=== PATIENT | female | born 1965 | race Caucasian/White ===

== ENCOUNTER 2025-02-12 09:52 | Emergency (ER) | payer OTHER, SELFPAY ==
[2025-02-12] VITALS (8 sets, daily range): BP systolic 146–157; BP diastolic 68–110; PULSE 95; TEMP 36.8; O2SAT 95–99; BMI 25.4
[2025-02-12] MEDS: METHYLPREDNISOLONE SOD SUCC PF 125 MG/2 ML VIAL IVP (10:22)
[2025-02-12] MEDS: DIPHENHYDRAMINE HCL 50 MG/ML VIAL 25 MG IVP (10:22)
--- NOTE | 2025-02-12 10:55 | ED.ALLEREA1 ---
HPI - Allergic Reaction General Chief complaint: Allergic Reaction Stated complaint: allergic reaction Time Seen by Provider: 02/12/25 10:00 Source: patient Mode of arrival: ambulance Limitations: no limitations History of Present Illness HPI narrative: The patient is a 59-year-old female brought to us by the EMS after she had a possible anaphylactic or allergic reaction, as per the EMS she was complaining of difficulty breathing and that her throat is closing up a few minutes before arrival. By the time the EMS arrived she was tachycardic and she was complaining that she cannot breathe and her throat is closing up although her pulse ox was normal the patient was provided with epinephrine. According to the EMS also she had a rash on her upper body that disappeared by the time she came to the ER According to the patient she just had a scratch tests for allergy done yesterday and according to her she was supposed to get it read tomorrow, the patient started this morning while she is driving to work feeling that her throat is closing up and she is itching a lot from her back, she is complaining right now is a lot of itching in her back in addition to mildly feeling that her throat is still swollen The patient has no difficulty speaking at the moment and she did not had any change in voice No apparent rash at the moment at the upper and lower extremities with the patient have her skin allergen teststill attached to her back Related Data Previous Rx's ?Medication ?Instructions ?Recorded diphenhydramine HCl 25 mg capsule 25 mg PO Q8H PRN allergic reaction 02/12/25 (Benadryl) #10 caps prednisone 20 mg tablet 40 mg (2 x 20 mg) PO DAILY 3 days 02/12/25 #6 tabs Allergies Allergy/AdvReac Type Severity Reaction Status Date / Time Penicillins Allergy Intermediate Hives Verified 02/12/25 09:56 Review of Systems ROS Status of ROS 10 or more systems reviewed and unremarkable except as noted in history and below PFSH PFSH Social History Little interest or pleasure in doing things: not at all Feeling down, depressed, or hopeless: not at all Exam Narrative Exam Narrative: Nurses notes and vital signs reviewed and patient is not hypoxic. General: Well-appearing and in no apparent distress. Skin: The patient had the skin allergy test test to her back when removing it there was 2 spots of redness mostly showing a circular contact dermatitis, there is no name attached to the discs Head: Normocephalic, atraumatic. Neck: Supple, non-tender. Eye: Pupils are equal, round and EOMI. No scleral icterus. Ears, Nose, Mouth, and Throat: TM are clear, no nasal mucosal hypertrophy. Oral mucosa is moist, no posterior oropharynx erythema, uvula is mid-line and airway is patent Cardiovascular: Regular Rate and Rhythm without murmur, gallop or rub. Respiratory: No accessory muscle use or respiratory distress. Lungs are clear to auscultation, no wheezing, rales or rhonchi Chest Wall: no tenderness Back: No midline thoracic or lumbar vertebral tenderness. No CVA tenderness Musculoskeletal: normal ROM, no calf or popliteal tenderness, no lower extremity edema/swelling GI: Abdomen is soft, non-distended. Normal bowel sounds. No masses appreciated. No tenderness to palpation. No rebound, guarding, or rigidity noted. Neurological: A&O x4. No cranial nerve dysfunction observed. No truncal ataxia. Moves all extremities. Sensation intact. Psychiatric: Cooperative and interactive. Normal mood and affect. Constitutional Vital Signs, click to edit/add: Last Vital Signs Temp 98.2 F 02/12/25 09:56 Pulse 95 H 02/12/25 09:56 Resp 20 02/12/25 09:56 BP 154/94 H 02/12/25 09:56 Pulse Ox 98 02/12/25 09:56 O2 Del Method Room Air 02/12/25 09:56 Course Vital Signs Vital signs: Vital Signs Temperature 98.2 F 02/12/25 09:56 Pulse Rate 95 H 02/12/25 09:56 Respiratory Rate 20 02/12/25 09:56 Blood Pressure 154/94 H 02/12/25 09:56 Pulse Oximetry 98 02/12/25 09:56 Oxygen Delivery Method Room Air 02/12/25 09:56 Temperature 98.2 F 02/12/25 09:56 Pulse Rate 95 H 02/12/25 09:56 Respiratory Rate 20 02/12/25 09:56 Blood Pressure 154/94 H 02/12/25 09:56 Pulse Oximetry 98 02/12/25 09:56 Oxygen Delivery Method Room Air 02/12/25 09:56 MDM - Allergic Reaction MDM Narrative Medical decision making narrative: The patient ready received epinephrine IM before arrival for possible allergic reaction by the time she arrived to us she is feeling better but she has no rash as well except for the contact dermatitis spots on her back but she was complaining of severe itching Patient provided with Benadryl and Solu-Medrol after removing the allergy test The patient does have 2 spots of contact dermatitis and she was provided with a 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 The patient agrees with the following Diagnosis and Treatment plan and the patient will be discharged home. Discharge Plan Discharge Chief Complaint: Allergic Reaction Clinical Impression: Allergic reaction Patient Disposition: Home, Self-Care Time of Disposition Decision: 10:56 Condition: Good Mode of Transportation: Private Vehicle Prescriptions / Home Meds: New prednisone 20 mg tablet 40 mg PO DAILY 3 Days Qty: 6 0RF diphenhydramine HCl [Benadryl] 25 mg capsule 25 mg PO Q8H PRN (Reason: allergic reaction) Qty: 10 0RF Print Language: Mohawk Instructions: General Allergic Reaction (ED), Allergy Testing (ED) Referrals: Mariana Clark NP [Primary Care Provider] - 1 week Discharge Date/Time: 02/12/25 11:00
== END 2025-02-12 11:00 | disposition home or self-care (01) ==
PROVIDERS: Emergency Provider Emergency Medicine; PCP Nurse Practitioner Family
DX: T78.49XA Other allergy, initial encounter (principal); L29.9 Pruritus, unspecified; R21 Rash and other nonspecific skin eruption; R06.09 Other forms of dyspnea; R00.0 Tachycardia, unspecified
CPT/HCPCS: 99284; J1200; J2919